=== PATIENT | female | born 1960 | race American Indian/Alaskan Native ===

== ENCOUNTER 2020-07-18 06:56 | Emergency (ER) | payer BC ==
[2020-07-18 07:12] VITALS: BP 122/79
[2020-07-18] MEDS ORDERED: traMADol 50 MG TAB PO ONE (07:32)
--- NOTE | 2020-07-18 07:35 | Emergency Department Report ---
ED Extremity Problem HPI - General Chief complaint: Extremity Injury, Lower Stated complaint: LT HIP PAIN Time Seen by Provider: 07/18/20 07:28 Source: patient Mode of arrival: Wheelchair Limitations: No Limitations - History of Present Illness Initial comments: This is a 59-year-old female complaining of worsening left hip pain x3 days. She denies any known falls or injuries. Hip pain is a 9/10 and not relieved with Tylenol. Her past medical history is of hypothyroidism she is currently taking Levoxyl. No other medical problems. She is currently in a wheelchair having difficulty walking due to the pain. Otherwise she is in no acute distress. She denies any other symptoms MD Complaint: extremity pain -: days(s) (3) Location: left History of Same: Yes -: No fever, No associated chest pain Radiation: none Severity scale (0 -10): 9 Quality: sharp Improves with: nothing Worsens with: walking Associated Symptoms: denies other symptoms. denies: chest pain, shortness of breath, fever, myalgias, arthralgias, rash - Related Data Home Medications Medication Instructions Recorded Confirmed Last Taken Levothyroxine [Synthroid] 03/24/13 03/24/13 Unknown Zolpidem [Ambien] 03/24/13 03/24/13 Unknown Previous Rx's Medication Instructions Recorded Last Taken Type HYDROcodone/APAP 5-325 [[place] 1 each PO Q8HR PRN #20 tablet 03/24/13 Unknown Rx 5/325 mg] Naproxen [Naprosyn] 375 mg PO BID #20 tablet 03/24/13 Unknown Rx Ketorolac [Toradol] 10 mg PO Q6H PRN 3 Days #12 tablet 07/18/20 Unknown Rx Allergies Allergy/AdvReac Type Severity Reaction Status Date / Time No Known Allergies Allergy Verified 07/18/20 07:08 ED Review of Systems ROS: Stated complaint: LT HIP PAIN Other details as noted in HPI Comment: All other systems reviewed and negative Constitutional: no symptoms reported Eyes: as per HPI ENT: as per HPI Respiratory: no symptoms reported Cardiovascular: denies: chest pain, palpitations Endocrine: no symptoms reported Gastrointestinal: as per HPI. denies: abdominal pain, nausea, diarrhea, constipation Genitourinary: as per HPI Musculoskeletal: other (Left hip pain) Neurological: as per HPI Psychiatric: as per HPI Hematological/Lymphatic: as per HPI ED Past Medical Hx - Past Medical History Previous Medical History?: No Additional medical history: thyroid, - Surgical History Additional Surgical History: thyroid - Social History Smoking Status: Never Smoker Substance Use Type: Alcohol - Medications Home Medications: Home Medications Medication Instructions Recorded Confirmed Last Taken Type HYDROcodone/APAP 5-325 [[place] 1 each PO Q8HR PRN #20 tablet 03/24/13 Unknown Rx 5/325 mg] Levothyroxine [Synthroid] 03/24/13 03/24/13 Unknown History Naproxen [Naprosyn] 375 mg PO BID #20 tablet 03/24/13 Unknown Rx Zolpidem [Ambien] 03/24/13 03/24/13 Unknown History Ketorolac [Toradol] 10 mg PO Q6H PRN 3 Days #12 tablet 07/18/20 Unknown Rx ED Physical Exam - General Limitations: No Limitations General appearance: alert, in no apparent distress - Head Head exam: Present: atraumatic - Eye Eye exam: Present: normal appearance - ENT ENT exam: Present: normal exam - Neck Neck exam: Present: normal inspection - Respiratory Respiratory exam: Present: normal lung sounds bilaterally - Cardiovascular Cardiovascular Exam: Present: regular rate, normal heart sounds - GI/Abdominal GI/Abdominal exam: Present: soft - Extremities Exam Extremities exam: Present: normal inspection - Back Exam Back exam: Present: normal inspection - Neurological Exam Neurological exam: Present: alert, oriented X3 - Psychiatric Psychiatric exam: Present: normal affect - Skin Skin exam: Present: warm, dry, intact, normal color ED Course Vital Signs 07/18/20 07:07 Temperature 97.8 F Pulse Rate 88 Respiratory 20 Rate Blood Pressure 122/79 O2 Sat by Pulse 100 Oximetry - Reevaluation(s) Reevaluation #1: 07/18/20 08:40 Patient states her pain is much improved I observed patient ambulatory with steady gait. Home care discussed with patient and follow-up with primary care doctor ED Medical Decision Making - Radiology Data Radiology results: report reviewed LEFT HIP 2 VIEWS INDICATION / CLINICAL INFORMATION: left hip pain COMPARISON: None available. FINDINGS: BONES / JOINT(S): No acute fracture or subluxation. No significant arthritis. SOFT TISSUES: No significant abnormality. - Medical Decision Making 59-year-old female complained of left hip pain which is actually left buttocks pain radiating down her her left she after tramadol given patient able to walk and then and lift her leg with ease. Information about sciatic nerve pain discussed with patient. The plan is to discharge her home with 3 days of Toradol and follow-up with primary care physician as soon as possible Critical Care Time: No Critical care attestation.: If time is entered above; I have spent that time in minutes in the direct care of this critically ill patient, excluding procedure time. ED Disposition Clinical Impression: Left hip pain Sciatica Qualifiers: Laterality: left Qualified Code(s): M54.32 - Sciatica, left side Disposition: TO HOME OR SELFCARE Is pt being admited?: No Does the pt Need Aspirin: No Condition: Stable Instructions: Hip Pain Additional Instructions: Please follow-up with your primary care doctor as soon as possible. Consider using warm compress to your left buttocks gentle stretching. Take anti- inflammatory Toradol with food every 6 hours as needed for pain for the next 3 days. Return to the emergency room for any inability to walk or pain that is uncontrolled. Prescriptions: Ketorolac [Toradol] 10 mg PO Q6H PRN 3 Days #12 tablet PRN Reason: Pain Referrals: PRIMARY CARE [Primary Care Provider] - 3-5 Days Time of Disposition: 08:44
--- NOTE | 2020-07-18 08:02 | XRay Report ---
LEFT HIP 2 VIEWS INDICATION / CLINICAL INFORMATION: left hip pain COMPARISON: None available. FINDINGS: BONES / JOINT(S): No acute fracture or subluxation. No significant arthritis. SOFT TISSUES: No significant abnormality. ADDITIONAL FINDINGS: None. Signer Name: Taras Rodriguez MD Signed: 07/18/2020 7:57 AM Workstation Name: [id number]
== END 2020-07-18 08:54 | disposition home or self-care (01) ==
LOC: ED 06:56
DX: M54.32 Sciatica, left side (principal); M25.552 Pain in left hip; Z98.890 Other specified postprocedural states; Z79.899 Other long term (current) drug therapy